=== PATIENT | female | born 1990 | race Two or more races ===

== ENCOUNTER 2018-05-31 22:34 | Inpatient (IN) | payer SELFPAY ==
[~2018-05-31] VITALS: Ht 162.6 cm; Wt 76.7 kg
[2018-05-31] MEDS ORDERED: IV RINGERS,LACTATED 1000ML 1,000 ML IV PRN (22:45)
[2018-05-31 23:05] LABS: BILIRUBIN,URINE NEGATIVE (NEG); CLARITY,URINE CLEAR; COLOR,URINE YELLOW; NITRITE,URINE NEGATIVE (NEG); PROTEIN,URINE NEGATIVE (NEG-TRACE); UROBILINOGEN,URINE 0.2 mg/dL (0.2 mg/dL)
[2018-05-31 23:08] LABS: BARBITURATES NEG (NEG); BENZODIAZEPINES NEG (NEG); CANNABINOIDS NEG (NEG); COCAINE NEG (NEG); METHADONE NEG (NEG); OPIATES NEG (NEG); PHENCYCLIDINE NEG (NEG)
[2018-05-31 23:09] LABS: AMPHETAMINE/METHAMPHETAMINE NEG (NEG)
[2018-05-31] MEDS ORDERED: LIDOCAINE 1% PF 30 ML VIAL. INJ PRN (23:15)
[2018-05-31] MEDS ORDERED: 0.9 % SODIUM CHLORIDE 10 ML DISP.SYRIN. IV PRN (23:15)
[2018-05-31] MEDS ORDERED: fentaNYL PF VIAL 100 MCG/2 ML VIAL IV PRN (23:15)
[2018-05-31] MEDS ORDERED: TERBUTALINE 1 MG/ML VIAL. SQ PRN (23:15)
[2018-05-31] MEDS ORDERED: OXYTOCIN 30 UNIT/500 ML PREMIX 500 ML IV PRN (23:15)
[2018-05-31] MEDS ORDERED: MAG HYDROX/ALUMINUM HYD/SIMETH 30 ML ORAL.SUSP PO PRN (23:15)
[2018-05-31] MEDS ORDERED: BUTORPHANOL 2 MG/ML VIAL. IV PRN ×2 (23:15)
[2018-05-31] MEDS ORDERED: CITRIC ACID/SODIUM CITRATE 30 ML SOLUTION. PO PRN (23:15)
[2018-05-31 23:21] LABS: BACTERIA,URINE FEW /HPF (0-FEW); SQUAMOUS EPITHELIAL CELL,UR FEW /LPF
[2018-05-31] MEDS ORDERED: CLINDAMYCIN 900MG PREMIX 50 ML IV SCH (23:30)
[2018-05-31 23:31] LABS: HEMATOCRIT 39.3 % (36.0-47.0); HEMOGLOBIN 13.1 g/dL (12.0-15.5); RED BLOOD COUNT 4.65 x10^6/uL (3.50-5.40); RED CELL DISTRIBUTION WIDTH 14.9 % (11.5-14.5); WHITE BLOOD COUNT 15.3 x10^3/uL (4.0-11.0)
[2018-05-31 23:39] VITALS: BP 129/72
[2018-06-01] MEDS ORDERED: AMPICILLIN SODIUM 2 GM in IV NORMAL SALINE 100ML 100 ML IV ONE ×2
[2018-06-01] MEDS ORDERED: BENZOCAINE 20% TOPICAL AEROSOL SPRAY 57GM CAN. TP PRN (03:30)
[2018-06-01] MEDS ORDERED: 0.9 % SODIUM CHLORIDE 10 ML DISP.SYRIN. IV PRN (03:30)
[2018-06-01] MEDS ORDERED: ZOLPIDEM 5 MG TABLET. PO PRN (03:30)
[2018-06-01] MEDS ORDERED: MAGNESIUM HYDROXIDE 2,400 MG/30 ML ORAL.SUSP. PO PRN (03:30)
[2018-06-01] MEDS ORDERED: SIMETHICONE 80 MG TAB.CHEW PO PRN (03:30)
[2018-06-01] MEDS ORDERED: OXYTOCIN 30 UNIT/500 ML PREMIX 500 ML IV PRN (03:30)
[2018-06-01] MEDS ORDERED: HYDROCORTISONE 1% TOPICAL OINTMENT 30GM TUBE. TP PRN (03:30)
[2018-06-01] MEDS ORDERED: diphenhydrAMINE HCL 25 MG CAPSULE PO PRN (03:30)
[2018-06-01] MEDS ORDERED: PHENYLEPH/MINERAL OIL/PETROLAT RECTAL OINTMENT 28GM TUBE. RC PRN (03:30)
[2018-06-01] MEDS ORDERED: MAG HYDROX/ALUMINUM HYD/SIMETH 30 ML ORAL.SUSP PO PRN (03:30)
[2018-06-01] MEDS ORDERED: ACETAMINOPHEN 325 MG TABLET. PO PRN (03:30)
[2018-06-01] MEDS ORDERED: miSOPROStol 200MCG TAB 200 MCG TABLET ONE (03:47)
--- NOTE | 2018-06-01 03:49 | PDOC ---
VAGINAL DELIVERY DATE DATE: 06/01/18 TIME: 03:44 : 2 Para: 1 EDC: Jun 17, 2018 VAGINAL DELIVERY: VTX VACCUM ASSISTED: No PLACENTA: Spontaneous SEX: Male WEIGHT 9#6oz Nuchal Cord: No Amniotic Fluid: Clear PAIN: Natural EXTENSION: No EBL 300cc COMPLICATIONS Shoulder dystocia times 1 min CONDITION Stable Signs of Intrauterine Infectio: None Shoulder Dystocia: No DIAGNOSIS MARILYN Benjamin MD Jun 01, 2018 03:49
[2018-06-01] MEDS ORDERED: miSOPROStol 200MCG TAB 200 MCG TABLET PR ONE (04:00)
[2018-06-01] MEDS ORDERED: AMPICILLIN SODIUM 1 GM in IV NORMAL SALINE 50ML 50 ML IV SCH (04:00)
--- NOTE | 2018-06-01 05:29 | OP ---
DATE OF SURGERY: 06/01/2018 DELIVERY NOTE The patient progressed to control spontaneous vaginal delivery of a 9 pound 6 ounce male . Apgars and pH are pending at the time of this dictation. The patient had a shoulder dystocia that was managed with suprapubic pressure and Nico maneuver and rotation of the anterior shoulder. was delivered over an intact perineum. Infarct was delivered. Cord was doubly clamped, transected cord between 2 clamps and the handed to nursing care in attendance. 's Apgars were 7 and 9, was obtained during the time of this dictation. Placenta delivered spontaneously intact, 3-vessel cord. There were no other periurethral vaginal or cervical lacerations appreciated. Estimated blood loss was 300 mL. Mother and child tolerated the procedure well. Sponge, needle counts correct x 2 per nursing staff. MARILYN PADRON MD DR: VITOR/marcela JOB#: [id number] / [id number]
[2018-06-01 06:41] VITALS: BP 105/60
[2018-06-01] MEDS ORDERED: FERROUS SULFATE 325 MG TABLET. PO SCH (08:00)
[2018-06-01] MEDS ORDERED: DIPHTH,PERTUSS(ACELL),TET TOX 0.5 ML DISP.SYRIN. VAX IM ONE (09:15)
[2018-06-01] MEDS: IBUPROFEN 800 MG TABLET. PO PRN (17:02)
[2018-06-01 21:00] VITALS: BP 110/50
[2018-06-02 02:00] VITALS: BP 102/64
[2018-06-02] MEDS: IBUPROFEN 800 MG TABLET. PO PRN (05:49)
[2018-06-02 05:52] VITALS: BP 113/70
[2018-06-02 12:57] VITALS: BP 104/68
[2018-06-02 18:04] VITALS: BP 113/77
[2018-06-02 21:45] VITALS: BP 113/72
[2018-06-03 04:45] VITALS: BP 106/72
--- NOTE | 2018-06-03 09:54 | PDOC3 ---
OB DISCHARGE SUMMARY DATE OF ADMISSION: 06/01/18 DATE OF DISCHARGE: 06/03/18 REASON FOR ADMISSION: Onset of labor INTRAPARTUM PROCEDURES: Spontanous Vag Deliv DISCHARGE DIAGNOSIS: Term Delivered DISCHARGE INFORMATION: Activity (ad brady), Diet (regular), Instructions (pelvic rest x 6 wks) HOSPITAL COURSE term gestation delivered vaginally without complications. KARON GOEL Jr, MD Jun 03, 2018 09:54
--- NOTE | 2018-06-03 09:55 | DISCH ---
DISCHARGE INSTRUCTIONS Condition on Discharge Condition on Discharge: Stable Activity After Discharge Activity Instructions for Disc: Activity as tolerated Lifting Instructions after Dis: No heavy lifting Driving Instructions after Dis: Do not drive today Diet after Discharge Diet after Discharge: Regular Contacting the DRL[facility] after DC Call your doctor for: Concerns you may have Follow-Up Follow up with: Dr. Serna in 1 week KARON GOEL Jr, MD Jun 03, 2018 09:55
[2018-06-03] MEDS ORDERED: NAPR500T8 PO (09:57)
[2018-06-03] MEDS ORDERED: HYDR-971 PO (09:57)
[2018-06-03 10:45] VITALS: BP 123/60
[2018-06-03 17:55] VITALS: BP 116/78
== END 2018-06-03 18:30 | disposition home or self-care (01) | DRG 775 ==
LOC: OBSVTOIN 22:34 → 3 SO LND 22:34 → 3 NORTH 06-01 06:12
PROVIDERS: ADMIT Specialist; ATTEND Specialist
PROC: 10E0XZZ Delivery of Products of Conception, External Approach (ICD-10-PCS; principal; 2018-06-01)
DX: O66.0 Obstructed labor due to shoulder dystocia (principal); Z37.0 Single live birth; Z3A.00 Weeks of gestation of pregnancy not specified
CPT/HCPCS: 36415; 80307; 81001; 85014; 85027; 86592; 87086; 87653; 90715; J0290; J2590; J7120; G0479